=== PATIENT | male | born 1970 | race Caucasian/White ===

== ENCOUNTER 2016-08-06 05:55 | Day surgery (SDC) | payer OTHER ==
[~2016-08-06] VITALS: Ht 182.9 cm; Wt 88.5 kg
[~2016-08-06 05:55] MED LIST: COZAAR100 MG PO; FLONASE16 G1 BOTH NARES; HYGROTON25 MG PO; NORVASC10 MG PO; PAXIL20 MG PO; TOPAMAX25 MG PO; ZOCOR20 MG PO; ZYRTEC10 M3 PO
[2016-08-06 06:51] VITALS: BP 132/84
[2016-08-06 14:16] VITALS: BP 129/86
[2016-08-06 15:15] VITALS: BP 121/77
== END 2016-08-06 15:44 | disposition home or self-care (01) ==
LOC: SDC 05:55
DX: J34.2 Deviated nasal septum (principal); J32.9 Chronic sinusitis, unspecified; J34.3 Hypertrophy of nasal turbinates; I10 Essential (primary) hypertension
CPT/HCPCS: 84132; 84132 91; 93005; J0690; J1100; J1170; J1885; J2250; J2405; J3010; J3301; J3480; J7050